=== PATIENT | male | born 1990 ===

== ENCOUNTER 2017-10-16 18:00 | Emergency (ER) | payer OTHER ==
[~2017-10-16] VITALS: Ht 193 cm; Wt 136.1 kg
[~2017-10-16 18:00] MED LIST: ACET325 PO; ALBU90OI INH; CLIN300 PO; EASY COMFORT P XX; INSULANPEN; LEVEMIR FL100 UNIT/1 SC; METF500 PO; NICO21TP TD; Novolog Fl100 UNIT/1 INJ; OXYC10TA19 PO; [UNRECOGNIZED DRUG - SUPPLY] EXT
[2017-10-16 19:19] LABS: Influenza A Negative (NEGATIVE); Influenza B Negative (NEGATIVE)
[2017-10-16] MEDS ORDERED: Pseudoephedrine30 MG PO (19:36)
[2017-10-16] MEDS ORDERED: Mucinex600 MG PO (19:36)
[2017-10-16] MEDS ORDERED: BENZ100A PO (19:37)
== END 2017-10-16 19:55 | disposition home or self-care (01) ==
LOC: ER 18:00
PROVIDERS: Physician Assistant
DX: J06.9 Acute upper respiratory infection, unspecified (principal); B34.9 Viral infection, unspecified; Z88.0 Allergy status to penicillin; Z79.4 Long term (current) use of insulin; Z79.899 Other long term (current) drug therapy; Z79.84 Long term (current) use of oral hypoglycemic drugs; E11.9 Type 2 diabetes mellitus without complications; F17.200 Nicotine dependence, unspecified, uncomplicated
CPT/HCPCS: 81000; 87804; 99283